=== PATIENT | male | born 1995 | race Hispanic/Latino ===

== ENCOUNTER 2020-01-05 00:44 | Emergency (ER) | payer SELFPAY ==
[~2020-01-05] VITALS: Ht 193 cm; Wt 117.9 kg
[2020-01-05] MEDS ORDERED: ACETAMINOPHEN 325 MG TAB PO ONE (01:45)
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
[2020-01-05] MEDS ORDERED: ACETAMINOPHEN 325 MG TAB ONE (01:50)
[2020-01-05 02:02] VITALS: BP 138/83
== END 2020-01-05 01:56 | disposition home or self-care (01) ==
LOC: FSED 00:44
DX: S00.93XA Contusion of unspecified part of head, initial encounter (principal); G89.11 Acute pain due to trauma; Y04.8XXA Assault by other bodily force, initial encounter; F17.200 Nicotine dependence, unspecified, uncomplicated; Y92.9 Unspecified place or not applicable
CPT/HCPCS: 70450; 70486; 99283

== ENCOUNTER 2021-08-17 11:15 | Emergency (ER) | payer OTHER ==
[~2021-08-17] VITALS: Ht 193 cm; Wt 120.2 kg
[2021-08-17] MEDS ORDERED: HYDROCODON-ACE1 EA12 PO (12:27)
[2021-08-17] MEDS ORDERED: HYDROCODONE/APAP 5MG-325MG TAB PO ONE (12:30)
[2021-08-17] MEDS ORDERED: HYDROCODONE/APAP 5MG-325MG TAB ONE (12:36)
== END 2021-08-17 12:48 | disposition home or self-care (01) ==
LOC: FSED 11:21
DX: S62.306A Unspecified fracture of fifth metacarpal bone, right hand, initial encounter for closed fracture (principal); W22.09XA Striking against other stationary object, initial encounter; Y92.008 Other place in unspecified non-institutional (private) residence as the place of occurrence of the external cause; F17.210 Nicotine dependence, cigarettes, uncomplicated
CPT/HCPCS: 99284

== ENCOUNTER → 2021-09-15 | Day surgery (SDC) | payer OTHER ==
[~2021-09-15] MED LIST: ACETAMINOPHEN/CODEINE 300MG - 30MG TAB ONE; BUPIVACAINE 0.25% 30ML SDV ONE; DEXAMETHASONE SOD PHOS INJ 4 MG/ML SDV ONE; FENTANYL CITRATE/PF 100MCG/2 ML INJ ONE; HYDROCODON-ACE1 EA12 PO; KETOROLAC TROMETHAMINE 30 MG/ML VIAL ONE; LIDOCAINE 1% W/EPINEPHRINE 20 ML VIAL ONE; LIDOCAINE HCL 2% LOCAL INJ 5 ML SDV VIAL INJ ONE; MEPERIDINE HCL INJ 25 MG/ML VIAL ONE; MIDAZOLAM HCL 2 MG/2 ML VIAL ONE; ONDANSETRON HCL INJ 2MG/ML 2ML 2 MG/ML VIAL ONE; POVIDONE IODINE 0.05% 0.05 % ML PO ONE; PROPOFOL IV EMULSION 10 MG/ML 20 ML VIAL ONE; SEVOFLURANE INHAL SOLN 250 ML PEN BTL ONE; SODIUM CHLORIDE 0.9% 50ML 100 ML ONE
[2021-09-15 13:48] VITALS: BP 142/82
== END | disposition home or self-care (01) ==
LOC: OR 10:06
PROVIDERS: ATTEND Orthopaedic Surgery
DX: S62.336A Displaced fracture of neck of fifth metacarpal bone, right hand, initial encounter for closed fracture (principal); F17.210 Nicotine dependence, cigarettes, uncomplicated; W22.8XXA Striking against or struck by other objects, initial encounter; Z01.812 Encounter for preprocedural laboratory examination; Z20.822 Contact with and (suspected) exposure to COVID-19
CPT/HCPCS: 26615; C1713 ×2; J0690; J1100; J1885; J2001; J2175; J2405; J2704; U0002; J2250; J3010

== ENCOUNTER 2021-10-14 16:00 | Outpatient (RCR) | payer OTHER ==
[~2021-10-14 16:00] MED LIST changes: -ACETAMINOPHEN/CODEINE 300MG - 30MG TAB ONE; -BUPIVACAINE 0.25% 30ML SDV ONE; -DEXAMETHASONE SOD PHOS INJ 4 MG/ML SDV ONE; -FENTANYL CITRATE/PF 100MCG/2 ML INJ ONE; -KETOROLAC TROMETHAMINE 30 MG/ML VIAL ONE; -LIDOCAINE 1% W/EPINEPHRINE 20 ML VIAL ONE; -LIDOCAINE HCL 2% LOCAL INJ 5 ML SDV VIAL INJ ONE; -MEPERIDINE HCL INJ 25 MG/ML VIAL ONE; -MIDAZOLAM HCL 2 MG/2 ML VIAL ONE; -ONDANSETRON HCL INJ 2MG/ML 2ML 2 MG/ML VIAL ONE; -POVIDONE IODINE 0.05% 0.05 % ML PO ONE; -PROPOFOL IV EMULSION 10 MG/ML 20 ML VIAL ONE; -SEVOFLURANE INHAL SOLN 250 ML PEN BTL ONE; -SODIUM CHLORIDE 0.9% 50ML 100 ML ONE
== END 2021-10-30 ==
LOC: OT 16:00
PROVIDERS: ATTEND Orthopaedic Surgery
DX: S62.366D Nondisplaced fracture of neck of fifth metacarpal bone, right hand, subsequent encounter for fracture with routine healing (principal); M79.641 Pain in right hand; M25.641 Stiffness of right hand, not elsewhere classified; M25.631 Stiffness of right wrist, not elsewhere classified; R53.1 Weakness
CPT/HCPCS: 97010; 97110; 97165; L3808